=== PATIENT | male | born 1970 | race Caucasian/White ===

== ENCOUNTER 2017-10-30 15:20 | Emergency (ER) | payer MEDICAID ==
[2017-10-30 16:00] LABS: BASOPHILS 0.9 % (0-2); EOSINOPHILS 1.7 % (0-7); HEMATOCRIT 34.3 % (42.0-54.0); HEMOGLOBIN 11.4 g/dL (13.5-17.5); IMMATURE GRANULOCYTES 0.2 % (0-5); LYMPHOCYTES 27.8 % (15-50); MCHC 33.2 g/dL (31.0-37.0); MCV 87.3 fL (80.0-100.0); MEAN PLATELET VOLUME 9.1 fL (7.4-10.4); MONOCYTES 13.1 % (2-11); NEUTROPHILS 56.3 % (40-80); PLATELET COUNT 225 10x3/uL (130-400); RBC 3.93 10x6/uL (4.20-6.10); RDW 13.5 % (11.5-14.5); WBC 5.3 10x3/uL (4.8-10.8)
[2017-10-30 16:20] LABS: ALBUMIN 3.3 g/dL (3.4-5.0); ALKALINE PHOSPHATASE 53 U/L (46-116); ALT (SGPT) 27 U/L (10-68); CALC OSMOLALITY 277 mosm/kg (275-300); CALCIUM 8.9 mg/dL (8.5-10.1); CARBON DIOXIDE 28.5 mmol/L (21.0-32.0); CHLORIDE - SERUM 102 mmol/L (98-107); CREATININE - SERUM 1.1 mg/dL (0.6-1.3); GLUCOSE 82 mg/dL (74-106); POTASSIUM - SERUM 3.5 mmol/L (3.5-5.1); PROTEIN - SERUM 6.1 g/dL (6.4-8.2); SODIUM 139 mmol/L (136-145); UREA NITROGEN 14 mg/dL (7-18); eGFR NON AFRICAN AMERICAN 76 mL/min (90-120)
[2017-10-30 17:15] LABS: UDS - AMPHET POSITIVE QUAL (NEGATIVE); UDS - BARB NEGATIVE QUAL (NEGATIVE); UDS - BENZO POSITIVE QUAL (NEGATIVE); UDS - COCAINE NEGATIVE QUAL (NEGATIVE); UDS - OPIATE NEGATIVE QUAL (NEGATIVE); UDS - PCP NEGATIVE QUAL (NEGATIVE); UDS - THC POSITIVE QUAL (NEGATIVE)
[2017-10-30 18:19] LABS: APPEARANCE CLEAR (CLEAR); BILIRUBIN NEGATIVE (NEGATIVE); COLOR YELLOW (YELLOW); GLUCOSE NEGATIVE (NEGATIVE); KETONE SMALL mg/dL (NEGATIVE); NITRITE NEGATIVE (NEGATIVE); PROTEIN NEGATIVE (NEGATIVE); UROBILINOGEN NORMAL (NORMAL)
== END 2017-10-30 21:01 | disposition left against medical advice (07) ==
LOC: D.ER 15:20 → EDBD 15:20 → D.ICU 18:30 → D.ER 18:30
PROVIDERS: Emergency Medicine
DX: R41.82 Altered mental status, unspecified (principal); E16.2 Hypoglycemia, unspecified; F15.10 Other stimulant abuse, uncomplicated; F12.10 Cannabis abuse, uncomplicated; F13.10 Sedative, hypnotic or anxiolytic abuse, uncomplicated; E83.42 Hypomagnesemia; D64.9 Anemia, unspecified; F17.200 Nicotine dependence, unspecified, uncomplicated

== ENCOUNTER 2018-03-15 05:56 | Emergency (ER) | payer MEDICAID ==
[2018-03-15 06:26] LABS: BASOPHILS 0.7 % (0-2); EOSINOPHILS 0.9 % (0-7); HEMATOCRIT 38.5 % (42.0-54.0); HEMOGLOBIN 13.2 g/dL (13.5-17.5); IMMATURE GRANULOCYTES 0.3 % (0-5); LYMPHOCYTES 14.9 % (15-50); MCH 31.3 pg (26.0-34.0); MCHC 34.3 g/dL (31.0-37.0); MCV 91.2 fL (80.0-100.0); MEAN PLATELET VOLUME 8.9 fL (7.4-10.4); NEUTROPHILS 70.2 % (40-80); PLATELET COUNT 239 10x3/uL (130-400); RBC 4.22 10x6/uL (4.20-6.10); RDW 13.3 % (11.5-14.5); WBC 6.9 10x3/uL (4.8-10.8)
[2018-03-15 06:55] LABS: APPEARANCE CLOUDY (CLEAR); COLOR STRAW (YELLOW); GLUCOSE NEGATIVE (NEGATIVE); NITRITE NEGATIVE (NEGATIVE); PROTEIN NEGATIVE (NEGATIVE); SPECIFIC GRAVITY 1.005 (1.005-1.020)
[2018-03-15 06:56] LABS: BILIRUBIN NEGATIVE (NEGATIVE); KETONE SMALL mg/dL (NEGATIVE); UROBILINOGEN NORMAL (NORMAL)
[2018-03-15 06:57] LABS: BACTERIA FEW /hpf (NONE SEEN); RED CELLS - URINE 0-5 /hpf (0-5); WHITE CELLS - URINE 0-5 /hpf (0-5)
[2018-03-15 06:58] LABS: SPERMATOZOA PRESENT /hpf (NONE SEEN); UDS - AMPHET POSITIVE QUAL (NEGATIVE); UDS - BARB NEGATIVE QUAL (NEGATIVE); UDS - BENZO NEGATIVE QUAL (NEGATIVE); UDS - COCAINE NEGATIVE QUAL (NEGATIVE); UDS - OPIATE NEGATIVE QUAL (NEGATIVE); UDS - PCP NEGATIVE QUAL (NEGATIVE); UDS - THC NEGATIVE QUAL (NEGATIVE)
[2018-03-15 07:01] LABS: ALKALINE PHOSPHATASE 82 U/L (46-116); ALT (SGPT) 33 U/L (10-68); CALC OSMOLALITY 290 mosm/kg (275-300); CALCIUM 8.9 mg/dL (8.5-10.1); CHLORIDE - SERUM 106 mmol/L (98-107); CREATININE - SERUM 1.1 mg/dL (0.6-1.3); GLUCOSE 106 mg/dL (74-106); POTASSIUM - SERUM 3.4 mmol/L (3.5-5.1); PROTEIN - SERUM 7.5 g/dL (6.4-8.2); SODIUM 144 mmol/L (136-145); UREA NITROGEN 23 mg/dL (7-18); eGFR NON AFRICAN AMERICAN 76 mL/min (90-120)
[2018-03-15 07:21] LABS: CREATINE KINASE 577 UL (21-232); TROPONIN-I < 0.017 ng/mL (0.000-0.060)
[2018-03-15 07:23] LABS: CKMB 9.7 U/L (0.0-3.6)
== END 2018-03-15 08:25 | disposition home or self-care (01) ==
LOC: D.ER 05:56
PROVIDERS: Family Medicine
DX: R55 Syncope and collapse (principal); E86.0 Dehydration; E87.6 Hypokalemia; R00.0 Tachycardia, unspecified; S80.12XA Contusion of left lower leg, initial encounter; S00.83XA Contusion of other part of head, initial encounter; W19.XXXA Unspecified fall, initial encounter; Y93.89 Activity, other specified; Y92.019 Unspecified place in single-family (private) house as the place of occurrence of the external cause; F17.200 Nicotine dependence, unspecified, uncomplicated

== ENCOUNTER 2018-06-22 16:16 | Emergency (ER) | payer MEDICAID ==
[~2018-06-22] VITALS: Ht 188 cm; Wt 81.8 kg
[2018-06-22 16:39] VITALS: Ht 188 cm; Wt 81.8 kg
[2018-06-22] MEDS ORDERED: PROZAC20 MG PO (16:41)
[2018-06-22] MEDS ORDERED: NEURONTIN 400400 MG PO (16:42)
[2018-06-22] MEDS ORDERED: VOLTAREN75 MG PO (17:42)
[2018-06-22] MEDS ORDERED: VIBRAMYCIN 100100 MG PO (17:42)
[2018-06-22 18:41] VITALS: BP 157/100
== END 2018-06-22 18:42 | disposition home or self-care (01) ==
LOC: D.ER 16:16
DX: L03.012 Cellulitis of left finger (principal); F17.200 Nicotine dependence, unspecified, uncomplicated